=== PATIENT | male | born 1985 | race Caucasian/White ===

== ENCOUNTER 2018-08-25 18:22 | Emergency (ER) | payer BC, OTHER ==
[2018-08-25 18:29] VITALS: BP 125/74; PULSE 80; TEMP 97.6; BMI 30.7
--- NOTE | 2018-08-25 19:56 | PDOC ---
Attending Attestation - HPI HPI: 08/25/18 20:13 Patient is a 33 year old male with no significant past medical history who presents to the ED with complaints of headache x3 weeks. He describes the headache as a squeezing band of tension that spreads across his head, with most severe pain between his eyes. He denies any associated visual disturbances or focal neurological deficits. He reports today the pain was at its worst, prompting him to come in, but subsided while in the ED. He reports drinking a lot more black coffee recently. Denies any fevers, chills, NVD, cough, SOB, chest pain, or urinary complaints. PCP: Dr. Vega - Physicial Exam PE: 08/25/18 20:14 GENERAL: Well developed, well nourished. Awake and alert. No acute distress. CARDIOVASCULAR: Regular rate and rhythm. No murmurs, rubs, or gallops. PULMONARY: No evidence of respiratory distress. ABDOMINAL: Soft. Non-tender. Non-distended. No rebound or guarding EXTREMITIES: No cyanosis. No clubbing. No edema. No calf tenderness. SKIN: Warm and dry. Normal capillary refill. No rashes. No jaundice. NEUROLOGICAL: Alert, awake, appropriate. Cranial nerves 2-12 intact. - Medical Decision Making 08/25/18 20:14 Documentation prepared by Nae Sullivan, acting as director medical writing for Radha Gomes MD. <Nae Sullivan - Last Filed: 08/25/18 20:13> - Resident Resident Name: Juan Jerez - ED Attending Attestation I have performed the following: I have examined & evaluated the patient, The case was reviewed & discussed with the resident, I agree w/resident's findings & plan, Exceptions are as noted - Medical Decision Making 08/25/18 22:52 33-year-old male presents because he is concerned about frontal headaches that he's had for the past 3 weeks. He has no focal neural deficits. These headaches are not associated with visual changes, nausea or vomiting. 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
--- NOTE | 2018-08-25 20:02 | PDOC ---
History of Present Illness - General Chief Complaint: Headache Stated Complaint: HEADACHE Time Seen by Provider: 08/25/18 19:30 History Source: Patient Exam Limitations: No Limitations - History of Present Illness Initial Comments: 08/25/18 19:48 33 yo male no sig pmh presents to the ED with 3 weeks of headaches. Pt states the MORROW starts in the am almost every day, reaches its maximal intensity at 12- 1pm and gets better as the day progresses. Pain is located in the frontal region , described as a tight band around his head at times, denies N/V, changes in vision/speech, weakness or changes in sensation on 1 side of his body. Pt tried excedrin, tylenol and motrin with minimal pain relief. Admits to drinking a lot more caffeine over the last month and has been straight black coffee in the AM. Denies recent illness, sick contacts, recent travel, CP, SOB, abdominal pain, F/ C/N/V or other concerns. Past History - Past Medical History Allergies/Adverse Reactions: Allergies Allergy/AdvReac Type Severity Reaction Status Date / Time No Known Allergies Allergy Verified 08/25/18 18:29 Home Medications: Ambulatory Orders NK [No Known Home Medication] 08/25/18 COPD: No - Suicide/Smoking/Psychosocial Hx Smoking History: Never smoked Review of Systems - Review of Systems Constitutional: No: Chills, Fever HEENTM: No: Eye Pain, Double Vision Respiratory: No: Shortness of Breath Cardiac (ROS): No: Chest Pain ABD/GI: No: Constipated, Diarrhea, Nausea, Vomiting : No: Frequency, Flank Pain Musculoskeletal: No: Back Pain Neurological: Yes: Headache (resolved). No: Numbness, Paresthesia, Tingling, Weakness, Unsteady Gait, Ataxia, Dizziness *Physical Exam - Vital Signs Last Vital Signs Temp Pulse Resp BP Pulse Ox 97.6 F 80 18 125/74 99 08/25/18 18:27 08/25/18 18:27 08/25/18 18:27 08/25/18 18:27 08/25/18 18:27 - Physical Exam General Appearance: Yes: Nourished, Appropriately Dressed. No: Apparent Distress HEENT: positive: EOMI, FRANCISCO JAVIER, Normal Voice Neck: positive: Supple Respiratory/Chest: positive: Lungs Clear, Normal Breath Sounds. negative: Crackles, Rales, Rhonchi, Stridor, Wheezing Cardiovascular: positive: Regular Rhythm, Regular Rate, S1, S2. negative: Edema , JVD, Murmur Vascular Pulses: Dorsalis-Pedis (R): 4+, Doralis-Pedis (L): 4+ Gastrointestinal/Abdominal: positive: Flat, Soft. negative: Pulsatile Mass, Distended, Guarding, Rebound, Tenderness Extremity: positive: Normal Capillary Refill, Normal Inspection, Normal Range of Motion Integumentary: positive: Normal Color, Dry, Warm Neurologic: positive: care technician II-XII NML intact, Fully Oriented, Alert, Normal Mood/ Affect, Normal Response, Motor Strength 5/5. negative: Facial Droop, Numbness, Sensory Deficit, Finger to Nose (normal), Confused, Disoriented Moderate Sedation - Procedure Monitoring Vital Signs: Procedure Monitoring Vital Signs Temperature 97.6 F 08/25/18 18:27 Pulse Rate 80 08/25/18 18:27 Respiratory Rate 18 08/25/18 18:27 Blood Pressure 125/74 08/25/18 18:27 O2 Sat by Pulse Oximetry (%) 99 08/25/18 18:27 Medical Decision Making - Medical Decision Making 08/25/18 20:40 33 yo male presents to the EC for 3 weeks of headaches during the day, maximal intensity around 1 pm, recently started drinking black coffee, more than in the past. 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 Pt AOX3, NAD, no current MORROW Pt told to increase water intake, decrease caffeine intake and stress, use OTC motrin for pain relief and given Neuro F/U if he has further concerns Pt understands and agrees with plan. Given strict return precautions *DC/Admit/Observation/Transfer Diagnosis at time of Disposition: Headache Qualifiers: Headache type: tension-type - Discharge Dispostion Disposition: HOME Condition at time of disposition: Good Decision to Admit order: No - Referrals Referrals: Aly Ballesteros MD [Staff Physician] - - Patient Instructions Printed Discharge Instructions: DI for Headache Additional Instructions: Please call the Neurologist referred to you and schedule an appointment. See your primary Doctor within the next 48 hours. Reduce caffeine intake, reduce stress if at all possible and increase water intake. Continue taking Motrin for headaches as needed over the counter every 4-6 hours. Return to the ER for new or concerning symptoms including but not limited to: severe headaches, changes in vision, weakness or numbness on 1 side of your body. Thank you - Post Discharge Activity
== END 2018-08-25 20:17 | disposition home or self-care (01) ==
LOC: SUPCPDRO 18:22 → JER 18:22
DX: R51 Headache (principal)
CPT/HCPCS: 99282-25